=== PATIENT | female | born 1955 | race Caucasian/White ===

== ENCOUNTER 2018-07-05 20:23 | Emergency (ER) | payer SELFPAY ==
[2018-07-05 20:24] VITALS: BP 154/89; PULSE 98; RESP 22; TEMP 36.7; O2SAT 97; BMI 36.0
--- NOTE | 2018-07-05 20:33 | EKG12_ITS ---
Test Reason : Blood Pressure : / mmHG Vent. Rate : 094 BPM Atrial Rate : 094 BPM P-R Int : 132 ms QRS Dur : 086 ms QT Int : 350 ms P-R-T Axes : 057 026 035 degrees QTc Int : 437 ms Normal sinus rhythm Normal ECG Confirmed by DENI CABA, MUMTAZ ([id number]), acquisitions editor HANS SCRUGGS ([id number]) on 07/07/2018 1:32:16 PM Referred By: SILVIANO Confirmed By:MUMTAZ CHEEMA MD
--- NOTE | 2018-07-05 20:36 | ED.DCSUM_ITS ---
- ER Visit Summary Date of Service: 07/05/18 Chief Complaint: Dizziness History of Present Illness: The patient is a 62 F who presents for a 20 to 30- minute episode of dizziness. Patient was at work and suddenly felt cold, shaky, and her throat felt full. She became lightheaded and dizzy. Her retirement manager had her sit down, and they called EMS. Episode lasted 20 to 30 minutes. Patient currently is just feeling slightly shaky and has mild nausea. Otherwise she feels better. No chest pain, shortness of breath, vision changes, fever, recent illnesses or other complaints. Patient has a history of a right lower extremity DVT. She is on Xarelto for this. Also history of hypertension. No alcohol or tobacco use. Physical Examination: Vital signs: afebrile, hemodynamically stable, no hypoxia on room air General: well nourished, well developed, in no distress Skin: warm, dry, no rash, no pallor HEENT: normocephalic and atraumatic; PERRL, EOMI, moist mucous membranes Cardiovascular: Tachycardic rate and rhythm without murmurs, no peripheral edema, 2+ pulses all distal extremities Respiratory: No increased work of breathing, lungs are clear to auscultation bilaterally, no rales, rhonchi or wheezing Abdominal: Abdomen is soft, nontender with normoactive bowel sounds, no guarding or rebound, no masses MSK: Moves all extremities, no deformities, normal strength Neuro: Awake and alert, oriented ?4. No facial droop, sensation and motor function intact and symmetric Test Results: Abnormal Lab Results 07/05/18 07/05/18 07/05/18 20:15 20:15 20:15 WBC 6.8 RBC 4.12 L Hgb 11.9 L Hct 36.7 L MCV 89.1 MCH 28.9 MCHC 32.4 RDW 14.1 RDW Differential 46.2 H Plt Count 283 MPV 10.6 Immature Gran % (Auto) 0.100 Neut % (Auto) 69.7 Lymph % (Auto) 21.7 Whitley % (Auto) 6.6 Eos % (Auto) 1.6 Baso % (Auto) 0.3 Absolute Neuts (auto) 4.7 Absolute Lymphs (auto) 1.48 Total Counted Not Reportable PT 12.8 INR 1.0 APTT 27.9 Sodium 143 Potassium 3.5 Chloride 111 H Carbon Dioxide 28.0 Anion Gap 4 L BUN 22 H Creatinine 0.91 Estim Creat Clear Calc 49.61 Est GFR (MDRD) Af Amer 81 Est GFR (MDRD) Non-Af 67 BUN/Creatinine Ratio 24.2 H Glucose 107 H Calcium 8.4 L Magnesium 2.0 Total Bilirubin 0.40 Direct Bilirubin 0.11 AST 20 ALT 29 Alkaline Phosphatase 98 Troponin I < 0.015 Total Protein 7.2 Albumin 3.3 Globulin 3.9 TSH 0.66 Clinical Impression(s) from Imaging Studies Chest X-Ray 07/05/18 20:50 IMPRESSION: No acute thoracic pathology. Electronically Signed: Shane Roland, at 21:07 EDT Tel , Service support , Medications Given Discontinued Medications Sodium Chloride () 1,000 mls @ 1,000 mls/hr IV .Q1H ONE Stop: 07/05/18 21:32 Last Admin: 07/05/18 20:39 Dose: 1,000 mls/hr Emergency Department Course and Treatment: Patient was given IV fluids for hydration. EKG showed sinus rhythm with no ischemia or ectopy. Chest x-ray showed no acute process. CBC showed no significant anemia or leukocytosis. Patient's chemistry panel was concerning for mild dehydration. No electrolyte derangements. Troponin negative. TSH within normal limits. On reevaluation patient's symptoms had completely resolved and she felt well. No findings on her work-up to explain her episode. Patient was encouraged to drink fluids to stay hydrated. She was discharged home in improved condition. Treatment Plan: [] Disposition: [] Impression: Dehydration, episode of dizziness This note was generated with [employer] dictation software. It may contain incorrect words, spelling, and punctuation that were not noted in review of the chart prior to signing ED Disposition - Plan for ED Patient: Disposition: Home or Assisted Living Instructions: ED Dehydration, ED Weakness [facility] Referrals: Josr Cornejo Jr. [Primary Care Provider] - 1-2 Days if not improving Additional Instructions: Please drink plenty of fluids to prevent dehydration. If you have any worsening of your condition or any new concerning symptoms, please return immediately to the emergency department for another evaluation.
[2018-07-05 20:37] VITALS: O2SAT 97
[2018-07-05] MEDS: 0.9% Normal Saline 1,000 ML 1000 ML IV (20:39)
--- NOTE | 2018-07-05 20:50 | RAD_ITS ---
STUDY: X-RAY CHEST REASON FOR EXAM: Female, 62 years old. Chest pain TECHNIQUE: PA and lateral views of the chest COMPARISON: None. FINDINGS: The lungs are clear. There are no pleural effusions. There is no pneumothorax. The heart is normal in size. The visualized osseous structures are within normal limits. RAD/Chest PA and Lateral IMPRESSION: No acute thoracic pathology. Electronically Signed: Shane Roland, at 21:07 EDT Tel , Service support ,
[2018-07-05 20:53] LABS: Absolute Lymphocyte Count 1.48 X10^3/ul (0.83-4.51); Absolute Neutrophil Count 4.7 X10^3/uL (2.0-7.7); Basophil# 0.02 X10^3/uL; Basophil% 0.3 % (0-1); Eosinophil# 0.11 X10^3/uL; Eosinophils% 1.6 % (0-5); Hematocrit 36.7 % (37-47); Hemoglobin 11.9 g/dl (12.0-15.0); Lymphocyte # 1.48 X10^3/ul (4.0); Lymphocyte % 21.7 % (19-41); Mean Corp Hgb Conc 32.4 g/gl (32-36); Mean Corpuscular Hgb 28.9 pg (27.0-32.0); Mean Corpuscular Volume 89.1 fL (81-99); Mean Platelet Vol. 10.6 fl (6.2-12.0); Monocyte# 0.45 X10^3/uL; Monocyte% 6.6 % (0-10); Neutrophil # 4.74 X10^3/uL (2.7-7.7); Neutrophil % 69.7 % (47-70); Platelet Count 283 K/mm3 (150-450); RBC Distribution Width CV 14.1 % (11.6-14.6); RBC Distribution Width SD 46.2 fl (35.1-43.9); Red Blood Count 4.12 M/mm3 (4.2-5.4); White Blood Count 6.8 K/mm3 (4.4-11.0)
[2018-07-05 20:54] LABS: POSITIVE COUNT NO; POSITIVE DIFFERENTIAL NO; POSITIVE MORPHOLOGY NO
[2018-07-05 20:55] LABS: Partial Thromboplast Time 27.9 Seconds (24.1-36.2); Prothrombin Time (Protime)PT. 12.8 SECONDS (11.7-14.9)
[2018-07-05 21:05] LABS: AST(SGOT) 20 U/L (15-37); Alanine Aminotransfer ALT/SGPT 29 U/L (13-56); Albumin, Serum 3.3 g/dL (3.2-5.0); Alkaline Phosphatase 98 U/L (45-117); Anion Gap 4 (5-15); BUN 22 mg/dL (7-18); BUN/Creat Ratio 24.2 RATIO (10-20); Bilirubin, Direct 0.11 mg/dL (0.00-0.30); Calcium,Total 8.4 mg/dL (8.5-10.1); Chloride 111 mmol/L (98-107); Creatinine, Serum 0.91 mg/dL (0.55-1.02); EST Glomerular Filtration Rate 67 mL/min (>60); Est Glom Filt Rate - Afr Amer 81 mL/min (>60); Estimated Creatinine Clearance 49.61 ml/min; Globulin 3.9 g/dL (2.2-4.2); Glucose 107 mg/dL (74-106); Potassium 3.5 mmol/L (3.5-5.1); Protein, Total 7.2 g/dL (6.4-8.2); Sodium Level 143 mmol/L (136-145); Thyroid Stim Hormone (TSH) 0.66 uIU/mL (0.358-3.74)
[2018-07-05 22:38] VITALS: BP 162/80; PULSE 78; RESP 18; O2SAT 97
[2018-07-05 23:50] VITALS: BP 141/80; PULSE 79; RESP 24; O2SAT 97
== END 2018-07-05 23:55 | disposition home or self-care (01) ==
PROVIDERS: Emergency Provider Emergency Medicine
DX: E86.0 Dehydration (principal); R42 Dizziness and giddiness; I10 Essential (primary) hypertension; Z86.718 Personal history of other venous thrombosis and embolism; Z79.01 Long term (current) use of anticoagulants; Z79.899 Other long term (current) drug therapy
CPT/HCPCS: 71046; 80048; 80076; 83735; 84443; 84484; 85025; 85610; 85730; 93005; 96360; 96361; 99285; J7030; A4216

== ENCOUNTER 2019-09-08 18:12 | Emergency (ER) | payer BC, SELFPAY ==
[2019-09-08 18:13] VITALS: BP 139/83; PULSE 68; RESP 18; TEMP 36.6; O2SAT 100; BMI 42.5
--- NOTE | 2019-09-08 18:42 | ED.VIS.GEN ---
History of Present Illness Chief Complaint: Dizziness Informant: Patient Narrative: Patient is a 63-year-old female who presents to the emergency department for dizziness. This started this morning. She states that she has had similar episodes before in the past and has a diagnosis of vertigo. She does not have any medications at home to treat this so she has not tried anything for it. Opening her eyes and looking to the left makes her symptoms worse. This is pretty typical for her. She has had 3-4 episodes like this before in the past. She has been nauseous whenever this flares up and she has vomited 3 times today. She denies any headache or vision changes. She does have a room spinning sensation. No neck pain or stiffness. She did feel a pop in her right ear but denies any tinnitus or pain in her ears. Denies any chest pain or shortness of breath. No weakness or loss of sensation in the extremity. Denies any head pain. She is on anticoagulation for history of DVTs. She denies any recent illnesses including cough, cold, congestion. No fevers or chills. She denies smoking, drinking or drug use. Past Medical History - Allergies and Home Meds Allergies/Adverse Reactions: Allergies No Known Allergies Allergy (Verified 09/08/19 18:15) Primary Care Physician: Josr Cornejo III, MD [Primary Care Provider] - 2 Days Past Medical History: - - DVTs, hypertension Smoking Status: Never smoker Alcohol: None Drugs: None Review of Systems All systems negative except as indicated General: Denies: Chills, Fever, Sweats Eyes: Denies: Visual changes - bilaterally, Diplopia ENT: Denies: Rhinorrhea, Sore throat Cardiovascular: Denies: Chest pain, Palpitations Respiratory: Denies: Dyspnea, Cough, Dyspnea on exertion Gastrointestinal: Reports: Nausea, Vomiting. Denies: Abdominal pain, Diarrhea Genitourinary: Denies: Dysuria, Hematuria, Frequency Musculoskeletal: Denies: Back pain, Extremity Pain Skin: Denies: Rash, Wounds Neurological: Reports: - - Dizziness. Denies: Headache, Weakness, Numbness Physical Exam Vital Signs/Narrative: Vital Signs Temp Pulse Resp BP Pulse Ox 09/08/19 18:13 98 F 68 18 139/83 H 100 Inital Vital Signs reviewed: Yes General: Well nourished, Well developed, No Acute Distress, - - Patient holding her head to the left. Head: Normocephalic, Atraumatic Eyes: Perrl, EOMI, - - Fatigable nystagmus to the left. ENT: Moist mucous membranes, No rhinorrhea Neck: Supple, Nontender Cardiovascular: Regular rate, Regular rhythm, No murmurs Respiratory: No distress, CTA bilaterally, Chest nontender Abdomen: Soft, Nontender, Nondistended, Normal bowel sounds Back: Nontender, Normal Inspection Extremities: Nontender, No edema. Negative for: Edema, Calf Tenderness Skin: Normal color, No rash Neurological: Alert, Oriented x3, Cranial nerves II-XII grossly intact, Normal Strength, Normal Sensation. Negative for: Left side facial droop, Right side facial droop Psychological: Normal affect, Normal Mood Diagnostic/Tx/Re-eval - Medical Decision Making Patient presents to the emerge department for an episode of vertigo. She has no focal deficits on physical exam. She does have fatigable nystagmus. She is very symptomatic when looking to the left. Will trial a dose of meclizine. I did talk to her about getting a head CT but since this is so typical for previous episodes of vertigo we will hold off at this time. Patient monitor the emerge department and was feeling much better after treatment. She was able to ambulate around the emergency department without any difficulty or repeat symptoms. She does feel comfortable going home at this time. We will write a prescription for meclizine for home treatment. She does need to follow-up with her PCP. Warning signs and symptoms for which to return to the emerge department including any worsening symptoms or developing any neurological deficit were reviewed. She understands and is agreeable with this plan. ED Disposition - Plan for ED Patient: Disposition: Home or Assisted Living Diagnosis: Vertigo Instructions: ED Vertigo Unspecified Prescriptions: Meclizine HCl 25 mg PO Q8 PRN #20 tab PRN Reason: Dizziness Prescription Printed Referrals: Josr Cornejo III, MD [Primary Care Provider] - 2 Days
[2019-09-08] MEDS: Meclizine HCl 25 MG Tablet PO (18:53)
== END 2019-09-08 20:03 | disposition home or self-care (01) ==
PROVIDERS: Emergency Provider Emergency Medicine; PCP Family Medicine
DX: R42 Dizziness and giddiness (principal); I10 Essential (primary) hypertension; Z86.718 Personal history of other venous thrombosis and embolism; Z79.01 Long term (current) use of anticoagulants
CPT/HCPCS: 99282; A4216

== ENCOUNTER → 2019-09-25 09:35 | Outpatient (CLI) | payer BC, SELFPAY ==
[2019-09-08 18:13] VITALS: BMI 42.5
== END ==
PROVIDERS: PCP Family Medicine; Referring Provider Family Medicine; Visit Provider Family Medicine
DX: Z20.828 Contact with and (suspected) exposure to other viral communicable diseases (principal)
CPT/HCPCS: 87635; 94799; U0003